=== PATIENT | male | born 1980 | race Caucasian/White ===

== ENCOUNTER 2016-07-10 17:00 | Emergency (ER) | payer BC ==
[~2016-07-10] VITALS: Ht 182.9 cm; Wt 79.4 kg
[~2016-07-10 17:00] MED LIST: ALPR2TAB2 PO; OXYC80TA40 PO
[2016-07-10] MEDS ORDERED: VANCOMYCIN IV 1,000 MG in IV DEXTROSE 5% 250 ML IV ONE (19:00)
[2016-07-10] MEDS ORDERED: VANCOMYCIN IV 200 ML ONE (19:16)
--- NOTE | 2016-07-10 20:55 | NUR ---
Cleaned right thigh with NS, covered it with CURAD, 4x4 gauze, adaptic, and covered with Co-band. Patient has good CMS in the right thigh/leg.
--- NOTE | 2016-07-10 21:19 | NUR ---
Patient discharged to home in stable conditon. Written and verbal after care instructions given. Patient verbalizes understanding of instructions.
[2016-07-10 21:20] VITALS: BP 120/85
== END 2016-07-10 21:19 | disposition home or self-care (01) ==
LOC: ER 17:04
DX: L03.115 Cellulitis of right lower limb (principal); F17.200 Nicotine dependence, unspecified, uncomplicated; F19.10 Other psychoactive substance abuse, uncomplicated; Z88.8 Allergy status to other drugs, medicaments and biological substances
CPT/HCPCS: A4663; J3370

== ENCOUNTER 2016-10-14 10:03 | Inpatient (IN) | payer BC, OTHER ==
[~2016-10-14] VITALS: Ht 177.8 cm; Wt 83.9 kg
[2016-10-14] MEDS ORDERED: CLON0.1T PO (10:14)
[2016-10-14] MEDS ORDERED: VANCOMYCIN IV 1,000 MG in IV DEXTROSE 5% 250 ML IV ONE (10:30)
[2016-10-14] MEDS ORDERED: MORPHINE SULFATE 2 MG/1 ML DISP.SYRIN IV ONE (10:30)
[2016-10-14] MEDS ORDERED: IV NORMAL SALINE 1000 ML BAG IV ONE (10:30)
[2016-10-14] MEDS ORDERED: ONDANSETRON 4 MG/2 ML VIAL IV ONE (10:30)
--- NOTE | 2016-10-14 10:30 | NUR ---
tried to heplock the pt 2 times. pt requested jugular.
[2016-10-14 11:08] LABS: BASOPHILS % (AUTO) 0.4 % (0.0-2.0); EOSINOPHILS # (AUTO) 0.1 K/uL (0.0-0.7); EOSINOPHILS % (AUTO) 1.7 % (0.0-7.0); HEMATOCRIT 36.9 % (40-50); HEMOGLOBIN 12.4 G/DL (14.0-18.0); LYMPHOCYTES # (AUTO) 1.6 K/UL (0.8-4.8); LYMPHOCYTES % (AUTO) 19.9 % (20.5-51.5); MEAN CORPUSCULAR HEMOGLOBIN 31.1 UUG (27.0-31.0); MEAN CORPUSCULAR HGB CONC 34 g/dL (32.0-37.0); MEAN CORPUSCULAR VOLUME 92.7 FL (82.0-92.0); MONOCYTES # (AUTO) 0.3 K/UL (0.1-1.30); MONOCYTES % (AUTO) 4.2 % (0.0-11.0); NEUTROPHILS # (AUTO) 5.8 K/UL (1.8-8.9); NEUTROPHILS % (AUTO) 73.8 % (38.5-71.5); PLATELET COUNT (AUTO) 198 K/UL (150-450); RED BLOOD CELL COUNT(AUTO) 3.99 MIL/UL (4.7-6.1); WHITE BLOOD COUNT (AUTO) 7.8 K/UL (4.0-11.2)
[2016-10-14] MEDS ORDERED: ONDANSETRON 4 MG/2 ML VIAL ONE ×2 (11:15→20:22)
[2016-10-14] MEDS ORDERED: MORPHINE SULFATE 4 MG/1 ML DISP.SYRIN ONE ×2 (11:15→14:45)
[2016-10-14] MEDS ORDERED: VANCOMYCIN IV 200 ML ONE (11:15)
[2016-10-14 11:21] LABS: CREATININE 1.1 mg/dL (0.6-1.3); POTASSIUM 3.8 mmol/L (3.5-5.1)
[2016-10-14 11:33] LABS: BILIRUBIN,DIRECT 0.1 mg/dL (0.0-0.2); BILIRUBIN,TOTAL 0.6 mg/dL (0.2-1.0); TOTAL PROTEIN, SERUM 8.1 g/dL (6.4-8.2)
[2016-10-14] MEDS ORDERED: IOHEXOL 300MG/ML 100 ML INFUS..BTL ONE (13:30)
[2016-10-14] MEDS ORDERED: IV NORMAL SALINE 250 ML IV ONE (13:30)
[2016-10-14] MEDS ORDERED: HEPARIN SODIUM,PORCINE/PF 100 UNIT/ML, 5ML SYR ONE (13:30)
[2016-10-14] MEDS ORDERED: KETOROLAC TROMETHAMINE 30 MG INJ IVP ONE (14:00)
[2016-10-14] MEDS ORDERED: KETOROLAC TROMETHAMINE 30 MG INJ ONE (14:13)
[2016-10-14] MEDS ORDERED: MORPHINE SULFATE 4 MG/1 ML DISP.SYRIN IV ONE (14:30)
[2016-10-14] MEDS ORDERED: HYDROMORPHONE 1 MG/1 ML DISP.SYRIN IV ONE (16:00)
[2016-10-14] MEDS ORDERED: HYDROMORPHONE 1 MG/1 ML DISP.SYRIN ONE (16:09)
--- NOTE | 2016-10-14 16:57 | NUR ---
HOSPITAL SANDWICH PROVIDED PER PT REQUEST
--- NOTE | 2016-10-14 17:14 | NUR ---
PT MOTHER AT BEDSIDE.
--- NOTE | 2016-10-14 18:05 | NUR ---
NO S/S OF RESPIRATORY DISTRESS NOTED. PT IS LAYING IN BED. IVS INTACT/PATENT. ALL SAFETY NEEDS ARE MET. Addendum: 10/14/16 at 1854 by BERTA SHARIF RN CORRECT TIME IS 7335
--- NOTE | 2016-10-14 18:11 | NUR ---
PT TRANSFERED TO FLOOR IN STABLE CONDITION
[2016-10-14 18:33] VITALS: BP 143/95
--- NOTE | 2016-10-14 18:54 | NUR ---
REGULAR DIET PER SHELDON. COMPANY ACCOUNTANT. NO CHANGES NOTED. PT REQUESTING PAIN MEDICATIONS, PAIN MEDS WILL BE PUT LATER ON PER YUE CHUNG
[2016-10-14] MEDS ORDERED: HYDROCODONE/APAP 5-325MG TABLET PO PRN (19:15)
[2016-10-14] MEDS ORDERED: diphenhydrAMINE 50 MG/1 ML VIAL IV PRN (19:15)
[2016-10-14] MEDS ORDERED: MAGNESIUM HYDROXIDE 30 ML LIQUID UDC PO PRN (19:15)
[2016-10-14] MEDS ORDERED: ZOLPIDEM 5 MG TABLET PO PRN (19:15)
[2016-10-14] MEDS ORDERED: Z GUARD REMEDY PASTE 57 GM TUBE TOP PRN (19:15)
[2016-10-14] MEDS ORDERED: ENOXAPARIN SODIUM 40 MG/0.4 ML DISP.SYRIN SQ SCH (19:15)
[2016-10-14] MEDS: ONDANSETRON 4 MG/2 ML VIAL IV PRN (20:13)
[2016-10-14] MEDS: HYDROMORPHONE 2 MG/1 ML DISP.SYRIN IV PRN ×2 (20:14→23:17)
[2016-10-14] MEDS ORDERED: HYDROMORPHONE 2 MG/1 ML DISP.SYRIN ONE ×2 (20:21→23:26)
[2016-10-14] MEDS ORDERED: diphenhydrAMINE 50 MG/1 ML VIAL ONE (20:22)
--- NOTE | 2016-10-14 23:00 | NUR ---
Pt received in bed sitting up, no acute distress noted. Pt has swollen left arm diagnosis cellulitis per MD. Pt observed anxious and restless, holding arm and crying, pt c/o pain /, pt given pain medication as ordered and comfort measures provided.
[2016-10-14] MEDS ORDERED: ZOLPIDEM 5 MG TABLET ONE (23:27)
[2016-10-15] MEDS: LORAZEPAM 2 MG/1 ML VIAL IV PRN ×2 (00:18→11:00)
[2016-10-15] MEDS ORDERED: LORAZEPAM 2 MG/1 ML VIAL ONE (00:26)
[2016-10-15] MEDS ORDERED: HYDROCODONE/APAP 5-325MG TABLET ONE (01:54)
--- NOTE | 2016-10-15 02:45 | NUR ---
Pt awake and remains restless and anxious. Pt holding arm requesting medication for pain. Pt given dilaudid as ordered and comfort measures provided.
[2016-10-15] MEDS: HYDROMORPHONE 2 MG/1 ML DISP.SYRIN IV PRN ×4 (02:51→14:01)
[2016-10-15] MEDS ORDERED: HYDROMORPHONE 2 MG/1 ML DISP.SYRIN ONE ×2 (03:01→06:28)
[2016-10-15] MEDS: ACETAMINOPHEN 325 MG TABLET PO PRN ×2 (04:24→11:53)
[2016-10-15] MEDS ORDERED: ACETAMINOPHEN 325 MG TABLET ONE (04:35)
--- NOTE | 2016-10-15 05:47 | NUR ---
Pt in bed sleeping at this time. Awake intermittently c/o pain in left arm. No acute distress noted. Safety measures maintained.
[2016-10-15] MEDS ORDERED: PANTOPRAZOLE SODIUM 40 MG TABLET.DR PO SCH (07:00)
[2016-10-15 07:06] LABS: EOSINOPHILS % (AUTO) 0.4 % (0.0-7.0); HEMATOCRIT 37.4 % (40-50); HEMOGLOBIN 12.8 G/DL (14.0-18.0); LYMPHOCYTES # (AUTO) 1.5 K/UL (0.8-4.8); LYMPHOCYTES % (AUTO) 15.5 % (20.5-51.5); MEAN CORPUSCULAR HEMOGLOBIN 31.4 UUG (27.0-31.0); MEAN CORPUSCULAR HGB CONC 34 g/dL (32.0-37.0); MONOCYTES # (AUTO) 0.8 K/UL (0.1-1.30); MONOCYTES % (AUTO) 7.7 % (0.0-11.0); NEUTROPHILS # (AUTO) 7.6 K/UL (1.8-8.9); NEUTROPHILS % (AUTO) 76.4 % (38.5-71.5); PLATELET COUNT (AUTO) 189 K/UL (150-450); RED BLOOD CELL COUNT(AUTO) 4.07 MIL/UL (4.7-6.1); WHITE BLOOD COUNT (AUTO) 9.9 K/UL (4.0-11.2)
[2016-10-15 07:23] LABS: MAGNESIUM 1.7 mg/dL (1.8-2.4); PHOSPHOROUS 3.4 mg/dL (2.5-4.9); POTASSIUM 3.6 mmol/L (3.5-5.1)
[2016-10-15] MEDS ORDERED: VANCOMYCIN IV 1,500 MG in IV DEXTROSE 5% 500 ML IV SCH (09:00)
[2016-10-15] MEDS: MAGNESIUM SULFATE/D5W 100 ML IV SCH ×2 (09:26→10:00)
[2016-10-15 11:04] VITALS: BP 128/80
--- NOTE | 2016-10-15 11:36 | NUR ---
Clinical Pharmacy Note: Vancomycin Dosing per Pharmacy Subjective: Vancomycin IV to start on this 36 y/o male for cellulitis. patient received vancomycin 1gm IVPB x1 in Ed yesterday at 1100. hx IVDA ht 5' 10'' wt 185 lb Objective: BUN 11 Scr 1 WBC 9.9 Temperature 98.3 Assessment/Plan: Will start vancomycin 1500mg IVPB q11h for predicted vancomycin trough level of 16 mcg/ml at steady state. 1st dose is due today at 0900. Plan to draw vanco trough level prior to 4th dose (level not yet ordered). Will monitor renal function closely to adjust the dose if needed. Will monitor daily.
[2016-10-15 15:19] VITALS: BP 104/64
[2016-10-15] MEDS: ONDANSETRON 4 MG/2 ML VIAL IV PRN (15:58)
[2016-10-15] MEDS ORDERED: CLONIDINE HCL 0.1 MG TABLET PO SCH (18:00)
[2016-10-15] MEDS ORDERED: HYDROMORPHONE 2 MG/1 ML DISP.SYRIN IM ONE (18:45)
--- NOTE | 2016-10-15 19:30 | NUR ---
PT STANDING IN [facility] THE NURSING STATION, GRIMACING ANG COMPLAINING THAT HE IS VOMITING BUT NOBODY IS TREATING HIM. PT WAS JUST MEDICATED WITH DILAUDID , STILL COMPLAINING THAT IT'S NOT HELPING, HE WANTS TO GO AMA,EVEN WITH THE NURSE'S EXPLANATION OF THE RISKSOF WORSENING INFECTIO,AND POSSIBLY LEADING TO SEPSISAND EVEN LOSING THE ARM , BUT NO AVAIL,HE STILL WANTS TO GO AMA,PAPERWORK PRINTED AND SIGNED BY FREDO, DR. LIANG NOTIFIED.PT REFUSED TO CHANGE HIS CLOTHES AND WANTING TO GO WEARING THE HOSPITAL GOWN, SOPHY YOST WAS CALLED AND WAS ADVISED TO CHANGE INTO HIS OWN CLOTHES. LEFT HOSPITAL AMBULATORY WITH HIS BELONGINGS IN APPARENTLY FAIR CONDITION.
--- NOTE | 2016-10-15 19:34 | NUR ---
PT IS ALERT AND ORIENTED, PT HAS SLURRED SPEECH AND LEFT SIDE WEAKNESS. NO S/S OF RESPIRATORY DISTRESS NOTED, PT IS ON 2L NC. NO S/S OF PAIN NOTED. IV INTACT/PATENT. ALL SAFETY NEEDS ARE MET. Addendum: 10/15/16 at 1936 by BERTA SHARIF RN CORRECT TIME 1900 PT IS LAYING IN BED. NO S/S OF RESPIRATORY DISTRESS NOTED. PT IS ON RA. PT IS MEDICATED FOR PAIN. REPORT IS GIVEN NO IV, AWAITING FOR PICC LINE NURSE TO PUT IN MIDLINE. ALL SAFETY NEEDS ARE MET.
[2016-10-15] MEDS ORDERED: ENOXAPARIN SODIUM 40 MG/0.4 ML DISP.SYRIN SQ SCH (21:00)
[2016-10-16] MEDS ORDERED: LORA2VIA6 IV (21:58)
[2016-10-16] MEDS ORDERED: RXVAN XX (21:58)
[2016-10-16] MEDS ORDERED: HYDR2DIS IV (21:58)
[2016-10-16] MEDS ORDERED: [UNRECOGNIZED DRUG - CODE] IV ×2 (21:58→22:26)
[2016-10-16] MEDS ORDERED: ACET325T53 PO (21:58)
[2016-10-16] MEDS ORDERED: ONDA4VIA30 IV (21:58)
[2016-10-16] MEDS ORDERED: PANT40TA2 PO (21:58)
[2016-10-16] MEDS ORDERED: PIPE3.3711 IV (21:58)
== END 2016-10-15 19:41 | disposition left against medical advice (07) | DRG 603 ==
LOC: ER 10:03 → MED 17:28
PROVIDERS: ADMIT Nurse Practitioner Acute Care; ATTEND Nurse Practitioner Acute Care
DX: L03.114 Cellulitis of left upper limb (principal); E44.1 Mild protein-calorie malnutrition; F19.20 Other psychoactive substance dependence, uncomplicated; K50.90 Crohn's disease, unspecified, without complications; E83.42 Hypomagnesemia; D64.9 Anemia, unspecified; G43.A0 Cyclical vomiting, in migraine, not intractable; G89.4 Chronic pain syndrome; I80.8 Phlebitis and thrombophlebitis of other sites; Z88.8 Allergy status to other drugs, medicaments and biological substances; R73.9 Hyperglycemia, unspecified; I77.1 Stricture of artery
CPT/HCPCS: 36415; 83735; 84100; 85025; 85730; 87040; 87086; J1170; J1200; J1642; J1885; J2060; J2270; J2405; J3370; J3475; J7030; J7040; J7050; J7060; Q9967

== ENCOUNTER 2016-10-16 12:55 | Inpatient (IN) | payer BC, OTHER ==
[~2016-10-16] VITALS: Ht 188 cm; Wt 83.0 kg
[~2016-10-16 12:55] MED LIST changes: +CLON0.1T PO
[2016-10-16] MEDS ORDERED: ACETAMINOPHEN 325 MG TABLET PO ONE (13:15)
[2016-10-16] MEDS ORDERED: HALOPERIDOL LACTATE 5 MG/1 ML VIAL IV ONE (13:15)
[2016-10-16] MEDS ORDERED: IV NORMAL SALINE 1000 ML BAG IV ONE ×2 (13:15→13:30)
[2016-10-16] MEDS ORDERED: CEFTRIAXONE 1 G in IV DEXTROSE 5% 50 ML IV ONE (13:15)
[2016-10-16] MEDS ORDERED: MORPHINE SULFATE 10 MG/1 ML DISP.SYRIN IV ONE ×2 (13:15→13:45)
[2016-10-16] MEDS ORDERED: VANCOMYCIN IV 1,000 MG in IV DEXTROSE 5% 250 ML IV ONE (13:15)
[2016-10-16] MEDS ORDERED: IBUPROFEN 200 MG TABLET PO ONE (13:15)
[2016-10-16] MEDS ORDERED: ACETAMINOPHEN ES 500 MG TABLET ONE (13:28)
[2016-10-16] MEDS ORDERED: HALOPERIDOL LACTATE 5 MG/1 ML VIAL ONE (13:28)
[2016-10-16] MEDS ORDERED: IBUPROFEN 600 MG TABLET ONE (13:28)
[2016-10-16] MEDS ORDERED: CEFTRIAXONE 1 G VIAL ONE (13:29)
[2016-10-16] MEDS ORDERED: VANCOMYCIN IV 200 ML ONE (13:29)
[2016-10-16] MEDS ORDERED: MORPHINE SULFATE 4 MG/1 ML DISP.SYRIN ONE (13:29)
[2016-10-16 13:30] LABS: BASOPHILS # (AUTO) 0.1 K/uL (0.0-8.0); BASOPHILS % (AUTO) 0.7 % (0.0-2.0); EOSINOPHILS % (AUTO) 0.2 % (0.0-7.0); HEMATOCRIT 39.2 % (40-50); HEMOGLOBIN 12.9 G/DL (14.0-18.0); LYMPHOCYTES # (AUTO) 1.2 K/UL (0.8-4.8); LYMPHOCYTES % (AUTO) 12.1 % (20.5-51.5); MEAN CORPUSCULAR HEMOGLOBIN 30.2 UUG (27.0-31.0); MEAN CORPUSCULAR HGB CONC 33 g/dL (32.0-37.0); MEAN CORPUSCULAR VOLUME 92.1 FL (82.0-92.0); MONOCYTES # (AUTO) 0.4 K/UL (0.1-1.30); MONOCYTES % (AUTO) 4.4 % (0.0-11.0); NEUTROPHILS # (AUTO) 8.5 K/UL (1.8-8.9); NEUTROPHILS % (AUTO) 82.6 % (38.5-71.5); PLATELET COUNT (AUTO) 176 K/UL (150-450); RED BLOOD CELL COUNT(AUTO) 4.25 MIL/UL (4.7-6.1); WHITE BLOOD COUNT (AUTO) 10.2 K/UL (4.0-11.2)
[2016-10-16] MEDS ORDERED: MORPHINE SULFATE 10 MG/1 ML DISP.SYRIN ONE (13:55)
[2016-10-16] MEDS ORDERED: IV NORMAL SALINE 250 ML IV ONE (13:55)
[2016-10-16] MEDS ORDERED: IOHEXOL 350 100 ML INFUS..BTL ONE (13:55)
[2016-10-16 14:01] LABS: BAND % (MANUAL) 7 % (0-10); LYMPHOCYTES % (MANUAL) 16 % (20-40); MONOCYTES % (MANUAL) 5 % (2-10); NEUTROPHILS % (MANUAL) 72 % (42-75)
[2016-10-16 14:06] LABS: CREATININE 1.3 mg/dL (0.6-1.3); POTASSIUM 3.3 mmol/L (3.5-5.1)
[2016-10-16 14:11] LABS: BILIRUBIN,DIRECT 0.3 mg/dL (0.0-0.2); BILIRUBIN,TOTAL 1.2 mg/dL (0.2-1.0); TOTAL PROTEIN, SERUM 8.7 g/dL (6.4-8.2)
[2016-10-16] MEDS ORDERED: Z GUARD REMEDY PASTE 57 GM TUBE TOP PRN (14:30)
[2016-10-16] MEDS ORDERED: MORPHINE SULFATE 2 MG/1 ML DISP.SYRIN IV PRN (14:30)
[2016-10-16] MEDS ORDERED: ONDANSETRON 4 MG/2 ML VIAL IV PRN (14:30)
[2016-10-16] MEDS ORDERED: ACETAMINOPHEN 325 MG TABLET PO PRN (14:30)
[2016-10-16] MEDS ORDERED: POTASSIUM CHLORIDE 20 MEQ TAB.PRT.SR PO ONE (14:30)
[2016-10-16] MEDS ORDERED: IV NS 1000 ML 1,000 ML IV PRN (14:30)
[2016-10-16] MEDS ORDERED: HYDROMORPHONE 1 MG/1 ML DISP.SYRIN IV PRN (16:00)
[2016-10-16] MEDS ORDERED: LORAZEPAM 2 MG/1 ML VIAL IV PRN (16:00)
[2016-10-16] MEDS ORDERED: HYDROMORPHONE 2 MG/1 ML DISP.SYRIN IV PRN (17:15)
[2016-10-16] MEDS: POTASSIUM CHLORIDE 50 ML IV SCH ×2 (18:53→20:08)
[2016-10-16] MEDS: PIPERACILLIN/TAZOBACTAM/D5W 50 ML IV SCH ×2 (18:53→23:06)
[2016-10-16 19:00] VITALS: BP 109/88
[2016-10-16] MEDS ORDERED: HYDR2DIS IV (21:58)
[2016-10-16] MEDS ORDERED: PIPE3.3711 IV (21:58)
[2016-10-16] MEDS ORDERED: ONDA4VIA30 IV (21:58)
[2016-10-16] MEDS ORDERED: [UNRECOGNIZED DRUG - CODE] IV ×2 (21:58→22:26)
[2016-10-16] MEDS ORDERED: RXVAN XX (21:58)
[2016-10-16] MEDS ORDERED: LORA2VIA6 IV (21:58)
[2016-10-16] MEDS ORDERED: PANT40TA2 PO (21:58)
[2016-10-16] MEDS ORDERED: ACET325T53 PO (21:58)
[2016-10-16] MEDS ORDERED: HYDROMORPHONE 2 MG/1 ML DISP.SYRIN IV ONE (22:45)
[2016-10-16] MEDS ORDERED: HYDROMORPHONE 2 MG/1 ML DISP.SYRIN ONE (22:57)
[2016-10-17] MEDS ORDERED: VANCOMYCIN IV 1,250 MG in IV DEXTROSE 5% 500 ML IV SCH ×2
[2016-10-17] MEDS ORDERED: PANTOPRAZOLE SODIUM 40 MG TABLET.DR PO SCH (07:00)
[2016-10-21] MEDS ORDERED: Oxycodone Sr PO (19:36)
[2016-10-21] MEDS ORDERED: SULF1TAB48 PO (19:36)
[2016-10-21] MEDS ORDERED: NORT25CA PO (19:36)
[2016-10-21] MEDS ORDERED: ACET325T53 PO (19:36)
[2016-10-21] MEDS ORDERED: CLON0.3P TD (19:38)
== END 2016-10-16 23:45 | disposition short-term general hospital (02) | DRG 871 ==
LOC: ER 12:56 → TELE 16:58
PROVIDERS: ADMIT Nurse Practitioner Acute Care; ATTEND Nurse Practitioner Acute Care
DX: A41.9 Sepsis, unspecified organism (principal); G92 Toxic encephalopathy; E87.1 Hypo-osmolality and hyponatremia; K50.90 Crohn's disease, unspecified, without complications; L03.114 Cellulitis of left upper limb; D68.9 Coagulation defect, unspecified; R17 Unspecified jaundice; E87.6 Hypokalemia; F41.9 Anxiety disorder, unspecified; G43.A0 Cyclical vomiting, in migraine, not intractable; G89.4 Chronic pain syndrome; I10 Essential (primary) hypertension; I73.9 Peripheral vascular disease, unspecified; F17.200 Nicotine dependence, unspecified, uncomplicated; F11.10 Opioid abuse, uncomplicated; F19.10 Other psychoactive substance abuse, uncomplicated; Z98.0 Intestinal bypass and anastomosis status; Z88.8 Allergy status to other drugs, medicaments and biological substances; F32.9 Major depressive disorder, single episode, unspecified; D53.9 Nutritional anemia, unspecified; E88.09 Other disorders of plasma-protein metabolism, not elsewhere classified; I72.1 Aneurysm of artery of upper extremity; E11.65 Type 2 diabetes mellitus with hyperglycemia; R41.82 Altered mental status, unspecified; T43.4X5A Adverse effect of butyrophenone and thiothixene neuroleptics, initial encounter; Y92.89 Other specified places as the place of occurrence of the external cause
CPT/HCPCS: 36415; 70030-TC; 71010; 76881; 83605; 85025; 85730; 86850; 86900; 86901; 87040; 93005; A4663; J0696; J1170; J1630; J2060; J2270; J2543; J3370; J3480; J3490; J7030; J7040; J7050; J7060; Q9967

== ENCOUNTER 2016-10-19 16:15 | Inpatient (IN) | payer BC, OTHER ==
[~2016-10-19] VITALS: Ht 157.5 cm; Wt 83.0 kg
[~2016-10-19 16:15] MED LIST changes: +ACET325T53 PO; -ALPR2TAB2 PO; -CLON0.1T PO; +HYDR2DIS IV; +LORA2VIA6 IV; +ONDA4VIA30 IV; -OXYC80TA40 PO; +PANT40TA2 PO; +PIPE3.3711 IV; +RXVAN XX; +[UNRECOGNIZED DRUG - CODE] IV
[2016-10-19 17:07] LABS: BASOPHILS % (AUTO) 0.5 % (0.0-2.0); EOSINOPHILS % (AUTO) 0.3 % (0.0-7.0); HEMATOCRIT 30.3 % (40-50); HEMOGLOBIN 10.1 G/DL (14.0-18.0); LYMPHOCYTES # (AUTO) 2.3 K/UL (0.8-4.8); LYMPHOCYTES % (AUTO) 26.7 % (20.5-51.5); MEAN CORPUSCULAR HEMOGLOBIN 30.3 UUG (27.0-31.0); MEAN CORPUSCULAR HGB CONC 33 g/dL (32.0-37.0); MEAN CORPUSCULAR VOLUME 91.3 FL (82.0-92.0); MONOCYTES # (AUTO) 0.5 K/UL (0.1-1.30); NEUTROPHILS # (AUTO) 5.9 K/UL (1.8-8.9); NEUTROPHILS % (AUTO) 66.5 % (38.5-71.5); PLATELET COUNT (AUTO) 331 K/UL (150-450); RED BLOOD CELL COUNT(AUTO) 3.32 MIL/UL (4.7-6.1); WHITE BLOOD COUNT (AUTO) 8.7 K/UL (4.0-11.2)
[2016-10-19 17:09] LABS: CREATININE 1.1 mg/dL (0.6-1.3); POTASSIUM 3.5 mmol/L (3.5-5.1)
--- NOTE | 2016-10-19 17:10 | NUR ---
Per Dr Lombardi he spoke with Dr Moise via telephone and pt to be admitted to m/s.
[2016-10-19 17:14] LABS: BILIRUBIN,DIRECT 0.2 mg/dL (0.0-0.2); BILIRUBIN,TOTAL 0.5 mg/dL (0.2-1.0); TOTAL PROTEIN, SERUM 7.9 g/dL (6.4-8.2)
--- NOTE | 2016-10-19 17:25 | NUR ---
Nursing microwave supervisor notified for midline insertion as ordered by .
--- NOTE | 2016-10-19 17:35 | NUR ---
Pt sleeping with eyes closed with no s/s of acute distress noted at this time. Mother is at bedside, pt property management form completed, pt has cellphone x1 and traffic observer x 1 only, pt's mother signed form.
[2016-10-19] MEDS ORDERED: PIPERACILLIN SODIUM/TAZOBACTAM 3.375 G in IV DEXTROSE 5% 50 ML IV ONE (18:00)
[2016-10-19] MEDS ORDERED: VANCOMYCIN IV 1,000 MG in IV DEXTROSE 5% 250 ML IV ONE (18:00)
--- NOTE | 2016-10-19 18:00 | NUR ---
IV antibiotics to be given on m/s floor, midline pending, Dr. Lombardi aware.
--- NOTE | 2016-10-19 18:14 | NUR ---
Pt trans to m/s floor, NAD noted.
--- NOTE | 2016-10-19 18:15 | NUR ---
Unable to depart pt from [facility] [employer] at this time.
--- NOTE | 2016-10-19 18:35 | NUR ---
Spoke with Antonio via telephone for midline insertion.
[2016-10-19 20:00] VITALS: BP 107/74
--- NOTE | 2016-10-19 20:00 | NUR ---
PATIENT ASLEEP IN BED WITH MOTHER AT BEDSIDE. PATIENT IS WAITING FOR MID-LINE NURSE TO COME AND INSERT MID-LINE. NO S/S OF ANY PAIN OR DISCOMFORT. NO RESP. DISTRESS NOTED. DRESSING NOTED TO LEFT UPPER ARM, C/D/I. VS WNL. CALL LIGHT IN REACH. ALL NEEDS ATTENDED. WILL CONTINUE TO MONITOR.
[2016-10-19] MEDS ORDERED: ZOLPIDEM 5 MG TABLET PO PRN (21:15)
[2016-10-19] MEDS ORDERED: ONDANSETRON 4 MG/2 ML VIAL IV PRN (21:15)
[2016-10-19] MEDS ORDERED: ACETAMINOPHEN 325 MG TABLET PO PRN (21:15)
[2016-10-19] MEDS ORDERED: ENOXAPARIN SODIUM 40 MG/0.4 ML DISP.SYRIN SQ SCH (21:15)
[2016-10-19] MEDS ORDERED: MAGNESIUM HYDROXIDE 30 ML LIQUID UDC PO PRN (21:15)
[2016-10-19] MEDS ORDERED: HYDROCODONE/APAP 10-325 MG TABLET PO PRN (21:15)
--- NOTE | 2016-10-19 21:25 | NUR ---
KASSANDRA RN MID-LINE NURSE AT BEDSIDE TO INSERT MID-LINE. ALL NEEDS ATTENDED. WILL CONTINUE TO MONITOR AND ASSESS.
[2016-10-19] MEDS ORDERED: ENOXAPARIN SODIUM 40 MG/0.4 ML DISP.SYRIN SQ ONE (21:41)
--- NOTE | 2016-10-19 21:50 | NUR ---
PATIENT HAS A MID-LINE #18 GAUGE NOTED TO RIGHT UPPER ARM, INTACT AND PATENT.
[2016-10-19] MEDS: HYDROMORPHONE 1 MG/1 ML DISP.SYRIN IV PRN (21:56)
[2016-10-19] MEDS: PIPERACILLIN/TAZOBACTAM/D5W 3.375 G in PREMIXED 1 EACH IV SCH (22:03)
[2016-10-19] MEDS ORDERED: HYDROMORPHONE 2 MG/1 ML DISP.SYRIN ONE (22:05)
[2016-10-19] MEDS ORDERED: PIPERACILLIN/TAZOBACTAM/D5W 100 ML IV ONE (22:06)
[2016-10-19] MEDS: POTASSIUM CHLORIDE 20 MEQ in IV NS 1000 ML 1,000 ML IV PRN (22:06)
[2016-10-20] MEDS: PIPERACILLIN/TAZOBACTAM/D5W 3.375 G in PREMIXED 1 EACH IV SCH ×3 (05:39→22:44)
[2016-10-20] MEDS: HYDROMORPHONE 1 MG/1 ML DISP.SYRIN IV PRN (05:40)
[2016-10-20] MEDS ORDERED: HYDROMORPHONE 2 MG/1 ML DISP.SYRIN ONE (05:42)
--- NOTE | 2016-10-20 05:45 | NUR ---
DRESSING NOTED TO LEFT ARM AND LEFT GROIN CHANGED. PICTURES TAKEN AND PLACED IN CHART. PATIENT C/O PAIN. GIVEN DILAUDID 2MG IV PER QC CHEMIST. VS WNL. SLEPT WELL. CALL LIGHT IN REACH. ALL NEEDS ATTENDED. WILL CONTINUE TO MONITOR.
[2016-10-20 06:29] VITALS: BP 130/81
[2016-10-20 06:56] LABS: BASOPHILS % (AUTO) 0.5 % (0.0-2.0); EOSINOPHILS # (AUTO) 0.1 K/uL (0.0-0.7); EOSINOPHILS % (AUTO) 1.9 % (0.0-7.0); HEMATOCRIT 27.6 % (40-50); HEMOGLOBIN 9.3 G/DL (14.0-18.0); LYMPHOCYTES # (AUTO) 1.9 K/UL (0.8-4.8); LYMPHOCYTES % (AUTO) 31.9 % (20.5-51.5); MEAN CORPUSCULAR HEMOGLOBIN 30.7 UUG (27.0-31.0); MEAN CORPUSCULAR HGB CONC 34 g/dL (32.0-37.0); MEAN CORPUSCULAR VOLUME 91.4 FL (82.0-92.0); MONOCYTES # (AUTO) 0.4 K/UL (0.1-1.30); MONOCYTES % (AUTO) 6.7 % (0.0-11.0); NEUTROPHILS # (AUTO) 3.6 K/UL (1.8-8.9); PLATELET COUNT (AUTO) 279 K/UL (150-450); RED BLOOD CELL COUNT(AUTO) 3.02 MIL/UL (4.7-6.1)
--- NOTE | 2016-10-20 07:15 | NUR ---
RECEIVED REPORT FROM PLATFORM MAN NURSE, PATIENT UP AT EDGE OF BEDSIDE, LEANING OVER BEDSIDE TABLE. PATIENT REPORTS HAVING SEVERE PAIN, WITH NO RELIEF FROM MEDICATION RECEIVED EARLY THIS MORNING.
[2016-10-20 07:20] LABS: BILIRUBIN,TOTAL 0.5 mg/dL (0.2-1.0); PHOSPHOROUS 3.4 mg/dL (2.5-4.9); POTASSIUM 3.3 mmol/L (3.5-5.1)
[2016-10-20] MEDS: PANTOPRAZOLE SODIUM 40 MG TABLET.DR PO SCH (08:34)
[2016-10-20] MEDS: HYDROMORPHONE 2 MG/1 ML DISP.SYRIN IV PRN ×5 (08:36→22:44)
[2016-10-20] MEDS: VANCOMYCIN IV 1,500 MG in IV DEXTROSE 5% 500 ML IV SCH ×2 (10:00→19:42)
[2016-10-20] MEDS: POTASSIUM CHLORIDE 20 MEQ in IV NS 1000 ML 1,000 ML IV PRN (10:20)
[2016-10-20] MEDS ORDERED: POTASSIUM CHLORIDE 20 MEQ TAB.PRT.SR PO ONE (10:30)
[2016-10-20 11:08] VITALS: BP 121/92
--- NOTE | 2016-10-20 12:00 | NUR ---
PATIENT REQUESTED THAT HE HAS ATIVAN ORDERED HE NORMALLY TAKES 2MG OF XANAX AT HOME TWICE PER DAY, PATIENT FEELS EXTREMELY ANXIOUS AND NAUSEOUS AND STATED THAT HE CANNOT EAT. PATRICK WOOD NOTIFIED.
--- NOTE | 2016-10-20 14:30 | NUR ---
WOUND CARE PERFORMED ON PATIENTS UPPER LEFT ARM, CLEANSED AND WET TO DRY DRESSING APPLIED.
[2016-10-20] MEDS: LORAZEPAM 2 MG/1 ML VIAL IV PRN ×2 (14:39→23:10)
[2016-10-20 15:11] VITALS: BP 101/62
--- NOTE | 2016-10-20 15:56 | NUR ---
Clinical pharmacy note-Vancomycin dosing per pharmacy Subjective: To start Vancomycin dosing on this patient for cellulitis with acute sepsis Objective: BUN 13 Scr 1.0 WBC 6.0 Temp 98.5 Ht 6'2" Wt 183 lbs Assessment/Plan: Vancomycin [id number] was ordered in ER last night but not given due to no IV access. To start Vancomycin 1500mg IV every 10 hrs (first dose given today at 1000) and draw trough by 4th dose(not ordered yet) for expected trough around 15.46. Will closely monitor renal function to adjust the dose if needed. Will follow daily.
--- NOTE | 2016-10-20 16:00 | NUR ---
PATIENT HAS CONTINUOUS REQUESTS FOR DILAUDID FOR PAIN. BP IS 106/78, CONSULTED WITH CHARGE NURSE ON DUTY, AND APPROVED TO GIVE PATIENT DILAUDED 2MG.
[2016-10-20 18:55] VITALS: BP 92/58
--- NOTE | 2016-10-20 18:55 | NUR ---
Patient requested pain medication, blood pressure checked and reading was 92/58. Informed patient that Dilauded cannot be administered when his BP is this low. Report given to oncoming nurse about status of blood pressure.
--- NOTE | 2016-10-20 19:10 | NUR ---
RECEIVED REPORT FROM AM SHIFT, PT IN BED, AWAKE AND ALERT AND ORIENTED. RESP IS EVEN AND UNLABORED. NO ACUTE DISTRESS. PT WITH C/O PAIN. INFORMED PT WILL PROVIDE MEDICATION AFTER B/P IS REASSESSED. PT ACKNOWLEDGED.
[2016-10-20 19:30] VITALS: BP 116/73
[2016-10-20 19:37] VITALS: BP 116/73
[2016-10-20] MEDS ORDERED: ENOXAPARIN SODIUM 40 MG/0.4 ML DISP.SYRIN SQ SCH (21:00)
--- NOTE | 2016-10-20 21:45 | NUR ---
PT IN BED, WATCHING TV. NO ACUTE DISTRESS. WOUND CARE PROVIDED TO LEFT ARM WOUND, CLEANSED SITE WITH NS, PAT DRIED AND APPLIED WET TO DRY DRESSING, COVERED WITH KERLIX DRESSING. CALL LIGHT WITH IN REACH, WILL CONT TO MONITOR PT.
[2016-10-21] MEDS: HYDROMORPHONE 2 MG/1 ML DISP.SYRIN IV PRN ×2 (04:35→07:24)
[2016-10-21] MEDS: PIPERACILLIN/TAZOBACTAM/D5W 3.375 G in PREMIXED 1 EACH IV SCH ×2 (05:03→13:59)
[2016-10-21 05:31] VITALS: BP 124/77
[2016-10-21] MEDS: VANCOMYCIN IV 1,500 MG in IV DEXTROSE 5% 500 ML IV SCH ×2 (05:43→16:53)
[2016-10-21] MEDS: POTASSIUM CHLORIDE 20 MEQ in IV NS 1000 ML 1,000 ML IV PRN (05:44)
[2016-10-21 05:56] LABS: BASOPHILS # (AUTO) 0.1 K/uL (0.0-8.0); BASOPHILS % (AUTO) 1.1 % (0.0-2.0); EOSINOPHILS # (AUTO) 0.2 K/uL (0.0-0.7); EOSINOPHILS % (AUTO) 2.7 % (0.0-7.0); HEMATOCRIT 27.7 % (40-50); HEMOGLOBIN 9.5 G/DL (14.0-18.0); LYMPHOCYTES # (AUTO) 2.2 K/UL (0.8-4.8); LYMPHOCYTES % (AUTO) 28.8 % (20.5-51.5); MEAN CORPUSCULAR HEMOGLOBIN 31.3 UUG (27.0-31.0); MEAN CORPUSCULAR HGB CONC 34 g/dL (32.0-37.0); MEAN CORPUSCULAR VOLUME 91.6 FL (82.0-92.0); MONOCYTES # (AUTO) 0.4 K/UL (0.1-1.30); MONOCYTES % (AUTO) 5.1 % (0.0-11.0); NEUTROPHILS # (AUTO) 4.9 K/UL (1.8-8.9); NEUTROPHILS % (AUTO) 62.3 % (38.5-71.5); PLATELET COUNT (AUTO) 300 K/UL (150-450); RED BLOOD CELL COUNT(AUTO) 3.02 MIL/UL (4.7-6.1); WHITE BLOOD COUNT (AUTO) 7.8 K/UL (4.0-11.2)
[2016-10-21] MEDS: PANTOPRAZOLE SODIUM 40 MG TABLET.DR PO SCH (06:02)
[2016-10-21 06:16] LABS: BILIRUBIN,TOTAL 0.5 mg/dL (0.2-1.0); MAGNESIUM 1.9 mg/dL (1.8-2.4); PHOSPHOROUS 3.8 mg/dL (2.5-4.9); POTASSIUM 3.6 mmol/L (3.5-5.1); TOTAL PROTEIN, SERUM 6.7 g/dL (6.4-8.2)
[2016-10-21 06:22] LABS: THYROID STIMULATING HORMONE 1.641 mIU/mL (0.358-3.740)
[2016-10-21] MEDS: LORAZEPAM 2 MG/1 ML VIAL IV PRN (06:33)
--- NOTE | 2016-10-21 07:20 | NUR ---
RECEIVED REPORT FROM COMMERCIAL MORTGAGE BROKER NURSE, PATIENT IS HUNCHED OVER, PACING IN THE HALLWAY REQUESTING PAIN MEDICATION, AND COMPLAINING OF SEVERE NAUSEA. PAIN MEDICATION ADMINISTERED.
--- NOTE | 2016-10-21 09:00 | NUR ---
PATIENT REPORTED HAVING SEVERE PAIN AND NAUSEA. [facility] CALLED AND LEFT A MESSAGE FOR ORDER REQUEST. DR RIVAS RETURNED CALL AND ADVISED THAT THE PATIENT IS STILL IN PAIN DESPITE ALL MEDICATIONS GIVEN. DR RIVAS INFORMED ABOUT PATIENT'S DECREASING BLOOD PRESSURE WITH NARCOTIC MEDICATIONS AND ORDERED 2MG DILAUDID STAT AND INCREASE FLUIDS TO 125ML/HR. PATIENT ALSO REPORTED THAT HE WANTS TO TAKE A SHOWER TO RELIEVE ABDOMINAL PAIN, DISCUSSED THAT PAIN MEDICATION CAUSES DIZZINESS AND A SHOWER IS NOT ADVISABLE FOR AT LEAST AN HOUR AFTER MEDICATION ADMINISTRATION, PATIENT WAS PROVIDED WITH A WARM COMPRESS TOWEL FOR HIS ABDOMEN HE STATED THAT THE WARMTH HELPS TO EASE DISCOMFORT.
[2016-10-21] MEDS ORDERED: HYDROMORPHONE 2 MG/1 ML DISP.SYRIN IV STA (09:08)
[2016-10-21] MEDS ORDERED: POTASSIUM CHLORIDE 20 MEQ in IV NS 1000 ML 1,000 ML IV PRN ×2 (09:10→09:12)
[2016-10-21] MEDS ORDERED: METOCLOPRAMIDE HCL 10 MG/2 ML VIAL IV PRN (10:00)
[2016-10-21] MEDS ORDERED: diphenhydrAMINE 50 MG/1 ML VIAL IV PRN (10:00)
[2016-10-21 11:50] VITALS: BP 120/83
[2016-10-21] MEDS ORDERED: NORTRIPTYLINE HCL 25 MG CAPSULE PO SCH ×2 (12:00→21:00)
[2016-10-21] MEDS ORDERED: CLONIDINE-TTS 3 PATCH TD SCH (12:00)
[2016-10-21 12:20] VITALS: BP 92/58
--- NOTE | 2016-10-21 13:15 | NUR ---
PATIENT CHECKED ON MULTIPLE TIMES BETWEEN 1200 AND CURRENT TIME. PATIENT IS SLEEPING WITH NO EVIDENCE OF DISTRESS NOTED. MOTHER IS AT BEDSIDE.
[2016-10-21] MEDS: OXYCODONE HCL 40 MG TAB.SR.12H PO SCH ×2 (13:21→20:39)
[2016-10-21 16:09] VITALS: BP 104/72
--- NOTE | 2016-10-21 16:30 | NUR ---
Clinical pharmacy note-Vancomycin dosing per pharmacy Subjective: To continue Vancomycin dosing on this patient for cellulitis with acute sepsis Objective: BUN 9 Scr 1.0 WBC 7.8 Temp 98.2 Vanco trough level: 17 mcg/ml Ht 6'2" Wt 183 lbs Assessment/Plan: Since vancomycin trough level is within therapeutic range, will continue same dose of Vancomycin 1500mg IV every 10 hrs for today. Will monitor renal function to adjust the dose if needed. Will follow daily.
--- NOTE | 2016-10-21 16:36 | NUR ---
GAVE REPORT TO NURSE TAKING OVER THE REST OF THE SHIFT, PATIENT INTERRUPTED AND ASKED TO CALL THE PAIN MANAGEMENT DOCTOR AGAIN BECAUSE HE FEELS LIKE HE IS GOING TO BE IN DETOX TOMORROW MORNING SINCE HE AGREED TO THE DOSE THE PAIN MANAGEMENT DOCTOR ORDERED. PATIENT DOES NOT CURRENTLY EXPRESS ANY PAIN BUT IS CONCERNED WITH PAIN HE WILL EXPERIENCE TOMORROW FROM WITHDRAWALS.
[2016-10-21] MEDS ORDERED: ALPRAZOLAM 0.5 MG TABLET PO SCH (17:00)
--- NOTE | 2016-10-21 18:16 | NUR ---
DR. ANDERSON IS PAGED AND CALLED BACK, PER DR. ANDERSON "I SPOKE TO THE PT, PAIN MEDICATIONS WON'T BE INCREASED". DR. RIVAS IS ADVISED. PT WANTS TO SPEAK TO DR. RIVAS AND GO "HOME WITH HOME HEALTH LIKE MY BROTHER DID". ADVISED DR. RIVAS ON PT'S REQUEST.
--- NOTE | 2016-10-21 19:00 | NUR ---
PATIENT IN ALERT ORIENTED, LEFT ARM/ELBOW DRESSING INTACT, MIDLINE ON R UPPER ARM INTACT, NO S/S OF DISTRESS.
--- NOTE | 2016-10-21 19:16 | NUR ---
PT IS AMBULATING IN THE HALLWAY AND REQUESTING TO TALK TO DR. RIVAS. DR. RIVAS HAS BEEN ADVISED THAT THE PT WANTS TO TALK TO HIM. NO S/S OF RESPIRATORY DISTRESS NOTED. ALL SAFETY NEEDS ARE MET. NO PAIN NOTED. IV INTACT/PATENT.
[2016-10-21] MEDS ORDERED: NORT25CA PO (19:36)
[2016-10-21] MEDS ORDERED: Oxycodone Sr PO (19:36)
[2016-10-21] MEDS ORDERED: SULF1TAB48 PO (19:36)
[2016-10-21] MEDS ORDERED: ACET325T53 PO (19:36)
[2016-10-21] MEDS ORDERED: CLON0.3P TD (19:38)
[2016-10-21 19:52] VITALS: BP 129/70
--- NOTE | 2016-10-21 21:02 | NUR ---
PATIENT IS DISCHARGE, TOOK ALL BELONGINGS, GIVEN DISCHARGE PAPERS AND DISCHARGE INSTRUCTIONS, PATIENT WENT HOME ACCOMPANIED BY MOTHER VIA PRIVATE CAR.
--- NOTE | 2016-10-21 21:05 | NUR ---
PATIENT MIDLINE REMOVED, AND ARM BAND REMOVED.
== END 2016-10-21 21:05 | disposition home health service (06) | DRG 300 ==
LOC: ER 16:18 → MED 18:58
PROVIDERS: ADMIT Internal Medicine; ATTEND Nurse Practitioner Acute Care
PROC: 05H533Z Insertion of Infusion Device into Right Subclavian Vein, Percutaneous Approach (ICD-10-PCS; principal; 2016-10-19)
DX: I72.1 Aneurysm of artery of upper extremity (principal); K50.90 Crohn's disease, unspecified, without complications; D68.9 Coagulation defect, unspecified; L03.115 Cellulitis of right lower limb; L03.114 Cellulitis of left upper limb; E44.0 Moderate protein-calorie malnutrition; F11.23 Opioid dependence with withdrawal; F17.200 Nicotine dependence, unspecified, uncomplicated; G89.4 Chronic pain syndrome; E87.6 Hypokalemia; Z88.8 Allergy status to other drugs, medicaments and biological substances; D64.9 Anemia, unspecified; F12.90 Cannabis use, unspecified, uncomplicated; F19.10 Other psychoactive substance abuse, uncomplicated; G43.A0 Cyclical vomiting, in migraine, not intractable; F41.9 Anxiety disorder, unspecified; F32.9 Major depressive disorder, single episode, unspecified; Z98.0 Intestinal bypass and anastomosis status; Z98.62 Peripheral vascular angioplasty status
CPT/HCPCS: 36415; 70030-TC; 71010; 83550; 83605; 83735; 84100; 84443; 85025; 85730; 87040; A4217; J1170; J1650; J2060; J2405; J2543; J3370; J3480; J7030; J7060

== ENCOUNTER 2018-03-02 11:42 | Emergency (ER) | payer BC, MEDICAID ==
[~2018-03-02] VITALS: Ht 188 cm; Wt 77.1 kg
[~2018-03-02 11:42] MED LIST changes: +CLON0.3P TD; -HYDR2DIS IV; -LORA2VIA6 IV; +NORT25CA PO; -ONDA4VIA30 IV; +Oxycodone Sr PO; -PANT40TA2 PO; -PIPE3.3711 IV; -RXVAN XX; +SULF1TAB48 PO; -[UNRECOGNIZED DRUG - CODE] IV
--- NOTE | 2018-03-02 12:08 | NUR ---
PT IS IN ROOM #2B. DR GUZMÁN EVALUATED THE PT.
[2018-03-02] MEDS ORDERED: HYDROMORPHONE 1 MG/1 ML DISP.SYRIN IV ONE (12:15)
[2018-03-02] MEDS ORDERED: ONDANSETRON 4 MG/2 ML VIAL IV ONE (12:15)
[2018-03-02] MEDS ORDERED: HYDROMORPHONE 1 MG/1 ML DISP.SYRIN ONE (12:22)
[2018-03-02] MEDS ORDERED: ONDANSETRON 4 MG/2 ML VIAL ONE (12:23)
[2018-03-02] MEDS ORDERED: LIDOCAINE 1%-EPI 1:100,000 20 ML VIAL ONE (13:23)
[2018-03-02] MEDS ORDERED: LIDOCAINE HCL 1% 20 ML VIAL IJ ONE (13:30)
[2018-03-02] MEDS ORDERED: SULFAMETH/TRIMETH 800/160 MG TABLET PO ONE (14:15)
--- NOTE | 2018-03-02 14:15 | NUR ---
PT WAS D/C TO HOME. D/C INSTRUCTIONS GIVEN TO THE PT. NO BLEEDING. DRESING IS INTACT.
[2018-03-02 14:16] VITALS: BP 138/81
[2018-03-02] MEDS ORDERED: SULFAMETH/TRIMETH 800/160 MG TABLET ONE (14:19)
== END 2018-03-02 14:19 | disposition home or self-care (01) ==
LOC: ER 11:42
DX: L02.414 Cutaneous abscess of left upper limb (principal); F17.200 Nicotine dependence, unspecified, uncomplicated; F11.10 Opioid abuse, uncomplicated; Z88.8 Allergy status to other drugs, medicaments and biological substances; Z79.891 Long term (current) use of opiate analgesic; Z79.899 Other long term (current) drug therapy
CPT/HCPCS: 10060; 71045; 93005; 93926; 93971; 96374; 96375; 99284; J1170; J2405; J3490; A4217; A4663

== ENCOUNTER 2018-03-26 23:48 | Emergency (ER) | payer BC, MEDICAID ==
[~2018-03-26] VITALS: Ht 172.7 cm; Wt 79.4 kg
--- NOTE | 2018-03-27 | NUR ---
PT BIB [facility] DUE TO R FOREARM ARTERIAL BLEED. TOURNIQUET TO RUE IN PLACE UPON ARRIVAL. PT A/OX4, ABLE TO FOLLOW COMMANDS. VSS. PT C/O L ARM PAIN. 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 PT DENIES C/P, SOB, N/V/D, DIZZINESS, HEADACHE. Addendum: 03/27/18 at 0426 by KALIN CORRECTION: ARTERIAL BLEED IN LUE. TOURNIQUET IN PLACE ON LUE.
--- NOTE | 2018-03-27 00:05 | NUR ---
TOURNIQUET REMOVED W/ ER MD AT BEDSIDE. PRESSURE DRESSING W/ DIRECT PRESSURE CLAMP APPLIED TO THE ARTERY. NO BLEEDING NOTED AT THIS TIME. VSS.
--- NOTE | 2018-03-27 00:06 | NUR ---
PULSE PRESENT LUE. CAP REFILL < 3 SECS.
--- NOTE | 2018-03-27 00:11 | NUR ---
PAGED [facility] FOR PANEL CALL - AWAITING CALL-BACK. ATTEMPT 1.
[2018-03-27] MEDS ORDERED: IV NORMAL SALINE 1000 ML BAG IV ONE ×4 (00:30→06:45)
--- NOTE | 2018-03-27 00:35 | NUR ---
SAW ALVAREZ SPEAKING W/ DR NNEKA VILLALOBOS, VASCULAR SURGEON, ON THE PHONE.
[2018-03-27 00:41] LABS: BASOPHILS % (AUTO) 0.6 % (0.0-2.0); EOSINOPHILS # (AUTO) 0.1 K/uL (0.0-0.7); EOSINOPHILS % (AUTO) 2.2 % (0.0-7.0); HEMATOCRIT 32.8 % (36.7-47.1); HEMOGLOBIN 11.1 g/dL (12.5-16.3); LYMPHOCYTES % (AUTO) 33.8 % (20.5-51.5); MEAN CORPUSCULAR HEMOGLOBIN 30.3 uug (23.8-33.4); MEAN CORPUSCULAR HGB CONC 34 g/dL (32.5-36.3); MEAN CORPUSCULAR VOLUME 89.5 fL (73.0-96.2); MONOCYTES # (AUTO) 0.4 K/uL (2.0-10.0); MONOCYTES % (AUTO) 6.6 % (0.0-11.0); NEUTROPHILS # (AUTO) 3.4 K/uL (1.8-8.9); NEUTROPHILS % (AUTO) 56.8 % (38.5-71.5); PLATELET COUNT (AUTO) 248 K/uL (152-348); RED BLOOD CELL COUNT(AUTO) 3.66 MIL/uL (4.06-5.63)
--- NOTE | 2018-03-27 00:50 | NUR ---
SAW ALVAREZ SPEAKING W/ DR. BAÑUELOS ON THE PHONE RE PT'S ADMISSION.
--- NOTE | 2018-03-27 01:02 | NUR ---
CALLED [facility] - CLOSED FOR [facility] FOR HIGHER LEVEL OF CARE TRANSFERS FOR NON PEDS/OB PTS.
--- NOTE | 2018-03-27 01:04 | NUR ---
Called [facility] transfer center. Spoke to Flor. No beds available at this time
--- NOTE | 2018-03-27 01:07 | NUR ---
SPOKE W/ RADHA FROM [facility]. AWAITING CALL-BACK.
[2018-03-27 01:11] LABS: BILIRUBIN,DIRECT 0.2 mg/dL (0.0-0.2); BILIRUBIN,TOTAL 0.6 mg/dL (0.2-1.0); CREATININE 1.1 mg/dL (0.6-1.3); POTASSIUM 3.6 mmol/L (3.5-5.1); TOTAL PROTEIN, SERUM 8.5 g/dL (6.4-8.2)
--- NOTE | 2018-03-27 01:22 | NUR ---
Cesar press shop supervisor from [facility] states that they cannot accept patient at this time due to vascular surgeon distance education teacher at this time
--- NOTE | 2018-03-27 01:35 | NUR ---
Called [facility] transfer center . Spoke with Kailee. requested to Fax facesheet and clinical
--- NOTE | 2018-03-27 01:53 | NUR ---
Dallin mae in [facility] - 03/27/18 at 0154 by KALIN US TECH AT BEDSIDE.
--- NOTE | 2018-03-27 02:26 | NUR ---
Kailee transfer team from [facility] call back. Unable to accept patient at this time per vascular surgeon request Dr Navarro due to "unsafe transfer."
--- NOTE | 2018-03-27 02:50 | NUR ---
SAW ALVAREZ AT BEDSIDE FOR PT UPDATE.
--- NOTE | 2018-03-27 03:00 | NUR ---
Called [facility] for possible transfer. [facility] unable to accept transfer without accepting MD at this time
--- NOTE | 2018-03-27 04:25 | NUR ---
CORRECTION: ARTERIAL BLEED IN LUE. TOURNIQUET IN PLACE ON LUE.
--- NOTE | 2018-03-27 04:40 | NUR ---
PT V/S 95/63, HR 63, RR 18, SPO2 100%. ER MD NOTIFIED. RECEIVED NEW ORDERS. PT PLACED IN [place] POSITION.
--- NOTE | 2018-03-27 04:49 | NUR ---
LUE COLD TO TOUCH, PULSE IS WEAK AND THREADY. POSITIVE PMSC IN LUE, CAP REFILL ~3 SECONDS. ER MD NOTIFIED. DIALYSIS CLAMP REMOVED FROM COMPRESSION DRESSING. NO BLEEDING NOTED.
[2018-03-27 05:15] LABS: BASOPHILS % (AUTO) 0.3 % (0.0-2.0); EOSINOPHILS # (AUTO) 0.1 K/uL (0.0-0.7); EOSINOPHILS % (AUTO) 1.6 % (0.0-7.0); HEMATOCRIT 26.9 % (36.7-47.1); HEMOGLOBIN 9.3 g/dL (12.5-16.3); LYMPHOCYTES # (AUTO) 2.3 K/uL (20.0-40.0); LYMPHOCYTES % (AUTO) 42.7 % (20.5-51.5); MEAN CORPUSCULAR HEMOGLOBIN 30.5 uug (23.8-33.4); MEAN CORPUSCULAR HGB CONC 34 g/dL (32.5-36.3); MEAN CORPUSCULAR VOLUME 88.6 fL (73.0-96.2); MONOCYTES # (AUTO) 0.4 K/uL (2.0-10.0); MONOCYTES % (AUTO) 8.1 % (0.0-11.0); NEUTROPHILS # (AUTO) 2.5 K/uL (1.8-8.9); NEUTROPHILS % (AUTO) 47.3 % (38.5-71.5); PLATELET COUNT (AUTO) 174 K/uL (152-348); RED BLOOD CELL COUNT(AUTO) 3.04 MIL/uL (4.06-5.63); WHITE BLOOD COUNT (AUTO) 5.3 K/uL (3.6-10.2)
[2018-03-27] MEDS ORDERED: HYDROMORPHONE 1 MG/1 ML DISP.SYRIN IV ONE (05:30)
[2018-03-27] MEDS ORDERED: HYDROMORPHONE 1 MG/1 ML DISP.SYRIN ONE (05:30)
--- NOTE | 2018-03-27 06:10 | NUR ---
Call [facility] for higher level of care transfer. Spoke Erinn TABOR from ER. She will have ER MD speak with dr Sheldon
--- NOTE | 2018-03-27 06:50 | NUR ---
EMERGENCY RELEASE OF FIRST UNIT OF PR[facility] AUTHORIZED BY DR. GUZMÁN.
--- NOTE | 2018-03-27 06:55 | NUR ---
PT'S L RADIAL PULSE CONFIRMED BY ER . PMSC IN LUE INTACT. PT LUE DUSKY IN APPEARANCE, COLD TO TOUCH.
--- NOTE | 2018-03-27 07:10 | NUR ---
NO TRANSFUSION REACTION NOTED WITHIN THE FIRST 15 MIN OF [facility] INFUSION.
--- NOTE | 2018-03-27 07:10 | NUR ---
REPORT GIVEN TO SHARONA VASQUEZ.
--- NOTE | 2018-03-27 07:15 | NUR ---
RECIEVED A CALL FROM [facility], FROM [facility]. PER REP PT'S WILL BE TRANSFERED TO THEM FOR DR IVORY(VASULAR SURGEON).
--- NOTE | 2018-03-27 07:38 | NUR ---
KEVIN FROM [facility] CALLED AND INFO PROVIDED. ETA 30-40 MIN.
--- NOTE | 2018-03-27 07:59 | NUR ---
PT'S MOTHER SIGNED TRANSFER FORM. PT CONTINUES TO BE ANXIOUS AND RESTLESS. CONTINUE BLOOD TRANSFUSION, NO ADVERSE/ALLERGIC REACTION NOTED.
--- NOTE | 2018-03-27 08:10 | NUR ---
1 UNIT OF BLOOD TRANSFUSION COMPLETED, PT TOLORATED WELL. REPORT GIVEN TO [facility] RN(KRISTINE).
--- NOTE | 2018-03-27 08:15 | NUR ---
PT OUT OF ER W/ [facility] TRANSFER TEAM ,IN STABLE CONDITION. TRANSFER INFO AND BED LOCATION PROVIDED FOR PT'S MOTHER AND ALL PT'S BELONGINGS GIVEN WELL.
--- NOTE | 2018-03-27 08:32 | NUR ---
REPORT GIVEN TO METAL POLISHER AT [facility].
== END 2018-03-27 08:38 | disposition short-term general hospital (02) ==
LOC: ER 23:50
DX: S65.902A Unspecified injury of unspecified blood vessel at wrist and hand level of left arm, initial encounter (principal); R57.8 Other shock; F17.200 Nicotine dependence, unspecified, uncomplicated; Z88.8 Allergy status to other drugs, medicaments and biological substances; Z79.899 Other long term (current) drug therapy; Z79.891 Long term (current) use of opiate analgesic; X58.XXXA Exposure to other specified factors, initial encounter; Y93.89 Activity, other specified; Y92.89 Other specified places as the place of occurrence of the external cause; Y99.8 Other external cause status
CPT/HCPCS: 36415; 36430; 80048; 80076; 84484; 85025 ×2; 85730; 86850; 86900; 86901; 86920; 93005; 96374; 99291; J1170; P9016; 70030-TC; A4663; J7030; J7050; P9021

== ENCOUNTER 2018-03-31 14:00 | Emergency (ER) | payer BC, MEDICAID ==
[~2018-03-31] VITALS: Ht 172.7 cm; Wt 79.4 kg
--- NOTE | 2018-03-31 15:01 | NUR ---
PT WAS EVALUATED BY DR ANTUNEZ. PT WAS D/C'd TO HOME. D/C INSTRUCTIONS GIVEN TO THE PT.
[2018-03-31 15:02] VITALS: BP 129/88
== END 2018-03-31 15:03 | disposition home or self-care (01) ==
LOC: ER 14:00
DX: Z48.01 Encounter for change or removal of surgical wound dressing (principal); F17.200 Nicotine dependence, unspecified, uncomplicated; F11.10 Opioid abuse, uncomplicated; Z88.8 Allergy status to other drugs, medicaments and biological substances; Z79.899 Other long term (current) drug therapy; Z79.891 Long term (current) use of opiate analgesic
CPT/HCPCS: A4663

== ENCOUNTER 2018-04-03 20:47 | Emergency (ER) | payer BC, MEDICAID ==
[~2018-04-03] VITALS: Ht 188 cm; Wt 79.4 kg
--- NOTE | 2018-04-03 23:00 | NUR ---
PT WAS TRIAGED AND REQUESTED TO WAIT IN THE WAITING ROOM.
--- NOTE | 2018-04-03 23:30 | NUR ---
PT CALLED IN FOR ROOM ASSIGNMENT, PT NOT PRESENT.
--- NOTE | 2018-04-03 23:46 | NUR ---
PT CALLED FOR ROOM ASSIGNMENT, NOT PRESENT. ATTEMPT 2.
--- NOTE | 2018-04-04 00:18 | NUR ---
PT CALLED FOR BED ASSIGNMENT, NOT PRESENT. ATTEMPT 3.
== END 2018-04-04 00:25 | disposition left against medical advice (07) ==
LOC: ER 20:47
DX: Z53.21 Procedure and treatment not carried out due to patient leaving prior to being seen by health care provider (principal)
CPT/HCPCS: A4663

== ENCOUNTER 2019-01-01 08:43 | Emergency (ER) | payer BC, MEDICAID ==
[~2019-01-01] VITALS: Ht 188 cm; Wt 83.9 kg
[2019-01-01] MEDS ORDERED: CEphaleXIN 500 MG CAPSULE PO ONE (09:15)
[2019-01-01] MEDS ORDERED: SULFAMETH/TRIMETH 800/160 MG TABLET PO ONE (09:15)
[2019-01-01] MEDS ORDERED: CEphaleXIN 500 MG CAPSULE ONE (09:25)
[2019-01-01] MEDS ORDERED: SULFAMETH/TRIMETH 800/160 MG TABLET ONE (09:25)
--- NOTE | 2019-01-01 09:27 | NUR ---
PATIENT WAS SEEN BY MD. MEDS GIVEN ORDERED. DC, RX AND FOLLOW UP INSTRUCTIONS GIVEN AND EXPLAINED TO PATIENT WHO STATES HE UNDERSTANDS ALL INSTRUCTIONS.
== END 2019-01-01 09:29 | disposition home or self-care (01) ==
LOC: ER 08:43
DX: L02.416 Cutaneous abscess of left lower limb (principal); L02.415 Cutaneous abscess of right lower limb; F11.10 Opioid abuse, uncomplicated; F17.200 Nicotine dependence, unspecified, uncomplicated; Z88.8 Allergy status to other drugs, medicaments and biological substances; Z79.899 Other long term (current) drug therapy
CPT/HCPCS: A4663

== ENCOUNTER 2019-11-06 04:22 | Emergency (ER) | payer BC ==
[~2019-11-06] VITALS: Ht 188 cm; Wt 86.2 kg
[2019-11-06 04:52] VITALS: BP 131/89
--- NOTE | 2019-11-06 04:52 | NUR ---
Patient discharged to home in stable condition. Written and verbal after care instructions given. Patient verbalizes understanding of instructions. Stressed follow up or return to ER for worsening s/s. Patient ambulated with stable gait.
== END 2019-11-06 04:53 | disposition home or self-care (01) ==
LOC: ER 04:30
DX: L03.115 Cellulitis of right lower limb (principal); L97.811 Non-pressure chronic ulcer of other part of right lower leg limited to breakdown of skin; Z88.8 Allergy status to other drugs, medicaments and biological substances; G89.4 Chronic pain syndrome; K50.90 Crohn's disease, unspecified, without complications; F11.10 Opioid abuse, uncomplicated; Z79.899 Other long term (current) drug therapy
CPT/HCPCS: A4663

== ENCOUNTER 2021-03-12 07:46 | Emergency (ER) | payer SELFPAY ==
[~2021-03-12] VITALS: Ht 188 cm; Wt 72.6 kg
[2021-03-12] MEDS ORDERED: CEPH500C2 PO (08:24)
[2021-03-12] MEDS ORDERED: SULF1TAB48 PO (08:24)
[2021-03-12] MEDS ORDERED: SULFAMETH/TRIMETH 800/160 MG TABLET PO ONE (08:30)
[2021-03-12] MEDS ORDERED: CEphaleXIN 500 MG CAPSULE PO ONE (08:30)
--- NOTE | 2021-03-12 08:43 | NUR ---
Pharmacy Sales Representative assumes care: Patient is AOX4, for discharge by Dr Olsen. Patient left ER in stable condition. Written and verbal after care instructions given. Patient verbalized understanding & compliance of instructions. Stressed follow up with primary doctor or return to ER for worsening s/s.
[2021-03-12] MEDS ORDERED: SULFAMETH/TRIMETH 800/160 MG TABLET ONE (08:47)
[2021-03-12] MEDS ORDERED: CEphaleXIN 500 MG CAPSULE ONE (08:47)
== END 2021-03-12 08:43 | disposition home or self-care (01) ==
LOC: ER 07:51
DX: L03.113 Cellulitis of right upper limb (principal); G89.4 Chronic pain syndrome; K50.90 Crohn's disease, unspecified, without complications; S41.131S Puncture wound without foreign body of right upper arm, sequela; X78.8XXS Intentional self-harm by other sharp object, sequela; F19.10 Other psychoactive substance abuse, uncomplicated
CPT/HCPCS: A4663

== ENCOUNTER 2022-11-05 20:18 | Emergency (ER) | payer MEDICAID ==
[~2022-11-05] VITALS: Ht 188 cm; Wt 80.7 kg
[~2022-11-05 20:18] MED LIST changes: -ACET325T53 PO; +CEPH500C2 PO; -CLON0.3P TD; -NORT25CA PO; -Oxycodone Sr PO
[2022-11-05] MEDS ORDERED: CLINDAMYCIN PHOSPHATE 600 MG/4 ML VIAL IM ONE (21:45)
[2022-11-05] MEDS ORDERED: POTA-194 PO (21:56)
[2022-11-05] MEDS ORDERED: FURO20TA4 PO (21:56)
[2022-11-05] MEDS ORDERED: CLIN300C12 PO (21:56)
[2022-11-05] MEDS ORDERED: CLINDAMYCIN HCL 150 MG CAPSULE PO ONE (22:15)
[2022-11-05] MEDS ORDERED: CLINDAMYCIN HCL 300 MG CAPSULE ONE (22:19)
[2022-11-05 23:58] VITALS: BP 138/75; TEMP 98; O2SAT 97
== END 2022-11-05 22:56 | disposition home or self-care (01) ==
LOC: ER 20:22
DX: L03.115 Cellulitis of right lower limb (principal); R60.0 Localized edema; F15.10 Other stimulant abuse, uncomplicated; R00.0 Tachycardia, unspecified; L97.919 Non-pressure chronic ulcer of unspecified part of right lower leg with unspecified severity; Z71.6 Tobacco abuse counseling; F17.210 Nicotine dependence, cigarettes, uncomplicated; Z88.8 Allergy status to other drugs, medicaments and biological substances; Z79.899 Other long term (current) drug therapy
CPT/HCPCS: 99283; 99406; J3490; A4663

== ENCOUNTER 2022-11-06 15:27 | Emergency (ER) | payer MEDICAID ==
[~2022-11-06] VITALS: Ht 188 cm; Wt 77.1 kg
[~2022-11-06 15:27] MED LIST changes: +CLIN300C12 PO; +FURO20TA4 PO; +POTA-194 PO
[2022-11-06] MEDS ORDERED: CLINDAMYCIN HCL 150 MG CAPSULE PO ONE (17:30)
[2022-11-06] MEDS ORDERED: CLINDAMYCIN HCL 300 MG CAPSULE ONE (17:32)
[2022-11-06 17:57] VITALS: BP 110/66; TEMP 98.1; O2SAT 98
== END 2022-11-06 17:58 | disposition home or self-care (01) ==
LOC: ER 15:27
DX: L03.116 Cellulitis of left lower limb (principal); L03.115 Cellulitis of right lower limb; F17.210 Nicotine dependence, cigarettes, uncomplicated; Z88.8 Allergy status to other drugs, medicaments and biological substances; Z79.899 Other long term (current) drug therapy
CPT/HCPCS: A4663

== ENCOUNTER 2022-11-07 15:17 | Emergency (ER) | payer MEDICAID ==
[~2022-11-07] VITALS: Ht 188 cm; Wt 77.1 kg
[2022-11-07] MEDS: IV NORMAL SALINE 1000 ML BAG IV ONE ×2 (15:30→16:00)
[2022-11-07] MEDS: CEFTRIAXONE 1 G in IV DEXTROSE 5% 50 ML IV ONE (16:00)
[2022-11-07] MEDS: VANCOMYCIN IV 1,000 MG in IV DEXTROSE 5% 250 ML IV ONE (16:00)
[2022-11-07 16:33] LABS: BASOPHILS # (AUTO) 0.2 K/UL (0.0-0.2); BASOPHILS % (AUTO) 2.9 % (0.0-2.0); EOSINOPHILS # (AUTO) 0.1 K/uL (0.0-0.7); EOSINOPHILS % (AUTO) 1.6 % (0.0-7.0); HEMATOCRIT 30.9 % (36.7-47.1); LYMPHOCYTES # (AUTO) 1.1 K/uL (0.8-4.8); LYMPHOCYTES % (AUTO) 13.7 % (20.5-51.5); MEAN CORPUSCULAR HEMOGLOBIN 29.4 uug (23.8-33.4); MEAN CORPUSCULAR HGB CONC 32 g/dL (32.5-36.3); MEAN CORPUSCULAR VOLUME 91.4 fL (73.0-96.2); MONOCYTES # (AUTO) 0.5 K/uL (0.1-1.30); NEUTROPHILS # (AUTO) 6.1 K/uL (1.8-8.9); NEUTROPHILS % (AUTO) 75.8 % (38.5-71.5); PLATELET COUNT (AUTO) 367 K/uL (152-348); RED BLOOD CELL COUNT(AUTO) 3.39 MIL/uL (4.06-5.63); RED CELL DISTRIBUTION WIDTH 14.5 % (12.1-16.2); WHITE BLOOD COUNT (AUTO) 8.1 K/uL (3.6-10.2)
[2022-11-07 16:38] LABS: DIFFERENTIAL COMMENT 1
[2022-11-07 16:53] LABS: CALCIUM 8.9 mg/dL (8.5-10.1); CREATININE 0.9 mg/dL (0.6-1.3); POTASSIUM 3.9 mmol/L (3.5-5.1)
[2022-11-07 16:57] LABS: ALBUMIN 2.8 g/dL (3.4-5.0); BILIRUBIN,DIRECT 0.2 mg/dL (0.0-0.2); BILIRUBIN,TOTAL 0.8 mg/dL (0.2-1.0); TOTAL PROTEIN, SERUM 9.2 g/dL (6.4-8.2)
[2022-11-07 17:34] VITALS: O2SAT 97
== END 2022-11-07 20:30 | disposition left against medical advice (07) ==
LOC: ER 15:17
DX: L03.115 Cellulitis of right lower limb (principal); R07.89 Other chest pain; F17.210 Nicotine dependence, cigarettes, uncomplicated; Z88.8 Allergy status to other drugs, medicaments and biological substances; Z79.2 Long term (current) use of antibiotics; Z79.899 Other long term (current) drug therapy; Z20.822 Contact with and (suspected) exposure to COVID-19
CPT/HCPCS: 99285; 93970; 96365; 71045; 96366; 87426; 80076; 80048; 83690; 85025; 84145; 85730; 87040 ×2; 84484; 36415; 93005; 96368; 83605; J0696; J3370; J7050; J7040; A4663